=== PATIENT | female | born 1930 | race Two or more races ===

== ENCOUNTER 2017-07-26 11:53 | Outpatient (CLI) | payer OTHER | END 2017-07-26 14:18 | disposition home or self-care (01) | LOC: LAB 11:53 | DX: J11.89 Influenza due to unidentified influenza virus with other manifestations (principal); J20.8 Acute bronchitis due to other specified organisms ==

== ENCOUNTER → 2017-07-26 | Outpatient (CLI) | payer OTHER ==
[~2017-07-26] MED LIST: CATAFLAM50 MG PO; N
== END | disposition home or self-care (01) ==
LOC: RAD 14:08
DX: J20.8 Acute bronchitis due to other specified organisms (principal); J11.89 Influenza due to unidentified influenza virus with other manifestations

== ENCOUNTER 2017-09-20 14:47 | Outpatient (CLI) | payer OTHER | END 2017-09-20 14:52 | disposition home or self-care (01) | LOC: RAD 14:47 | DX: S86.121A Laceration of other muscle(s) and tendon(s) of posterior muscle group at lower leg level, right leg, initial encounter (principal); M54.2 Cervicalgia ==